=== PATIENT | female | born 1960 | race Two or more races ===

== ENCOUNTER 2021-08-13 19:55 | Observation (INO) | payer BC, OTHER ==
[2021-08-13] MEDS ORDERED: MECLIZINE HCL 25 MG TABLET (FP) PO ONE (20:16)
[2021-08-13] MEDS ORDERED: METOCLOPRAMIDE HCL 10 MG TABLET (FP) PO ONE ×2 (20:16→20:23)
[2021-08-13] MEDS ORDERED: SODIUM CHLORIDE 1,000 ML IV STA (20:16)
[2021-08-13] MEDS ORDERED: MECLIZINE HCL 25 MG TABLET (FP) ONE (20:23)
[2021-08-13 20:51] LABS: BASO % 0.7 % (0-2.0); EOS % 0.6 % (0-4.5); HEMATOCRIT 38.3 % (32.4-45.2); LYMPH % 19.3 % (8-40); MCH 28.6 pg (25.7-33.7); MCHC 33.9 g/dl (32.0-36.0); MEAN CELL VOLUME 84.4 fl (80-96); MEAN PLT VOLUME 8.6 fl (7.5-11.1); MONO % 6.3 % (3.8-10.2); NEUT % 73.1 % (42.8-82.8); PLATELET COUNT 238 10^3/uL (134-434); RBC 4.55 M/mm3 (3.60-5.2); RDW 13.6 % (11.6-15.6); WHITE BLOOD COUNT 8.6 K/mm3 (4.0-10.0)
[2021-08-13 21:00] LABS: ALBUMIN 3.7 g/dl (3.4-5.0); BLOOD UREA NITROGEN 13.1 mg/dL (7-18); CALCIUM 9.3 mg/dL (8.5-10.1); MAGNESIUM 2.4 mg/dL (1.8-2.4)
[2021-08-13 21:03] LABS: CREATININE 0.8 mg/dL (0.55-1.3)
[2021-08-13 21:05] LABS: BILIRUBIN,TOTAL 0.7 mg/dL (0.2-1); TOT PROT 6.9 g/dl (6.4-8.2)
[2021-08-14 02:16] LABS: EPI CELLS 5 /uL (0-25.1); HYALINE CASTS 0 /uL (0-3.1); URINE APPEARANCE CLEAR; URINE BACTERIA 21 /uL (0-1359); URINE BILIRUBIN NEGATIVE (NEGATIVE); URINE COLOR YELLOW; URINE GLUCOSE (UA) NEGATIVE (NEGATIVE); URINE KETONE NEGATIVE (NEGATIVE); URINE LEUK ESTERASE 1+ (NEGATIVE); URINE NITRITE NEGATIVE (NEGATIVE); URINE PROTEIN NEGATIVE (NEGATIVE); URINE RBC 3 /uL (0-23.9); URINE UROBILINOGEN 0.2 mg/dL (0.2-1.0); URINE WBC 27 /uL (0-25.8)
[2021-08-14 03:32] VITALS: BMI 35.1
[2021-08-14] MEDS ORDERED: ALBUTEROL SO4 HFA INHALER IH PRN (04:32)
[2021-08-14] MEDS: LEVOTHYROXINE NA 50 MCG TABLET (FP) PO SCH (06:10)
[2021-08-14 09:14] LABS: BASO % 0.7 % (0-2.0); EOS % 1.7 % (0-4.5); HEMATOCRIT 37.9 % (32.4-45.2); HEMOGLOBIN 12.4 GM/dL (10.7-15.3); LYMPH % 27.2 % (8-40); MCH 28.1 pg (25.7-33.7); MCHC 32.7 g/dl (32.0-36.0); MEAN PLT VOLUME 9.2 fl (7.5-11.1); NEUT % 61.4 % (42.8-82.8); PLATELET COUNT 225 10^3/uL (134-434); RDW 13.5 % (11.6-15.6); WHITE BLOOD COUNT 6.4 K/mm3 (4.0-10.0)
[2021-08-14 09:35] LABS: ALBUMIN 3.3 g/dl (3.4-5.0); BLOOD UREA NITROGEN 9.5 mg/dL (7-18)
[2021-08-14 09:36] LABS: CALCIUM 8.8 mg/dL (8.5-10.1)
[2021-08-14 09:38] LABS: CREATININE 0.6 mg/dL (0.55-1.3)
[2021-08-14 09:40] LABS: BILIRUBIN,TOTAL 0.9 mg/dL (0.2-1); TOT PROT 6.3 g/dl (6.4-8.2)
[2021-08-14] MEDS ORDERED: ATORVASTATIN CA 10 MG TABLET (FP) PO SCH (22:00)
[2021-08-15] MEDS: LEVOTHYROXINE NA 50 MCG TABLET (FP) PO SCH (06:16)
[2021-08-15] MEDS ORDERED: TOPIRAMATE 25 MG TABLET PO SCH (10:00)
[2021-08-15 10:34] VITALS: BP 119/63; PULSE 62; TEMP 98.1
[2021-08-15 13:08] LABS: SARS-CoV-2 NAA Not Detected (Not Detected)
== END 2021-08-15 14:47 | disposition home or self-care (01) ==
LOC: JER 19:55 → JERBED 20:58 → J4S 08-14 02:46
PROVIDERS: ADMIT Internal Medicine; ATTEND Family Medicine
PROC: 3E0337Z Introduction of Electrolytic and Water Balance Substance into Peripheral Vein, Percutaneous Approach (ICD-10-PCS; principal; 2021-08-13)
DX: R42 Dizziness and giddiness (principal); R11.2 Nausea with vomiting, unspecified; E03.9 Hypothyroidism, unspecified; R94.31 Abnormal electrocardiogram [ECG] [EKG]; E66.8 Other obesity; Z68.35 Body mass index [BMI] 35.0-35.9, adult; J45.909 Unspecified asthma, uncomplicated; R51.9 Headache, unspecified
CPT/HCPCS: 36415; 70450-TC; 71045-TC-FY; 80053; 80061; 81003; 83735; 84443; 84484; 85025; 87086; 93005; 93010; 99285-25; C9803; G0378; U0003; U0005

== ENCOUNTER 2021-12-23 04:01 | Day surgery (SDC) | payer BC, OTHER ==
[2021-12-19 14:12] VITALS: BMI 34.2
[2021-12-23] MEDS ORDERED: MIDAZOLAM HCL 2 MG/2 ML SINGLE DOSE VIAL ONE (08:56)
[2021-12-23] MEDS ORDERED: ONDANSETRON 4 MG/2 ML VIAL IVPUSH PRN (09:28)
[2021-12-23] MEDS ORDERED: ACETAMINOPHEN 325 MG TABLET (FP) PO PRN (09:28)
[2021-12-23] MEDS ORDERED: oxyCODONE HCL 5 MG TABLET PO PRN (09:28)
[2021-12-23] MEDS ORDERED: LACTATED RINGERS SOLUTION 1,000 ML IV SCH (09:30)
[2021-12-23 11:01] VITALS: BP 110/72; PULSE 58; TEMP 97.9
== END 2021-12-23 10:55 | disposition home or self-care (01) ==
LOC: JASU-SURG 04:01
PROVIDERS: ATTEND Urology
PROC: 0TF4XZZ Fragmentation in Left Kidney Pelvis, External Approach (ICD-10-PCS; principal; 2021-12-23 09:00)
DX: N20.0 Calculus of kidney (principal)

== ENCOUNTER 2022-02-20 22:53 | Observation (INO) | payer BC, OTHER ==
[2022-02-20 22:59] VITALS: BMI 34.7
[2022-02-20] MEDS ORDERED: METOCLOPRAMIDE HCL INJECTION 10 MG/2 ML VIAL IVPUSH ONE (23:27)
[2022-02-20] MEDS ORDERED: LACTATED RINGERS SOLUTION 1000 ML INFUS.BAG IV ONE (23:27)
[2022-02-20] MEDS ORDERED: ACETAMINOPHEN 1000 MG/100 ML BAG IVPB ONE (23:27)
[2022-02-20] MEDS ORDERED: ACETAMINOPHEN INJECTION 100 ML IVPB ONE (23:42)
[2022-02-20] MEDS ORDERED: METOCLOPRAMIDE HCL INJECTION 10 MG/2 ML VIAL ONE (23:42)
[2022-02-21] LABS: BASO % 0.9 % (0-2.0); EOS % 2.7 % (0-4.5); HEMATOCRIT 38.1 % (32.4-45.2); HEMOGLOBIN 13.2 GM/dL (10.7-15.3); LYMPH % 32.4 % (8-40); MCH 29.7 pg (25.7-33.7); MCHC 34.5 g/dl (32.0-36.0); MEAN CELL VOLUME 86.1 fl (80-96); MEAN PLT VOLUME 8.2 fl (7.5-11.1); MONO % 10.3 % (3.8-10.2); NEUT % 53.7 % (42.8-82.8); PLATELET COUNT 240 10^3/uL (134-434); RBC 4.43 M/mm3 (3.60-5.2); RDW 13.9 % (11.6-15.6); WHITE BLOOD COUNT 6.3 K/mm3 (4.0-10.0)
[2022-02-21 00:21] LABS: ALBUMIN 3.5 g/dl (3.4-5.0); CALCIUM 8.8 mg/dL (8.5-10.1)
[2022-02-21 00:24] LABS: CREATININE 1.1 mg/dL (0.55-1.3)
[2022-02-21 00:26] LABS: BILIRUBIN,TOTAL 0.4 mg/dL (0.2-1); TOT PROT 6.9 g/dl (6.4-8.2)
[2022-02-21 06:20] VITALS: BP 135/69; PULSE 52; RESP 19; TEMP 97.2
== END 2022-02-21 06:37 | disposition left against medical advice (07) ==
LOC: JER 22:53 → JERBED 02-21 00:58
PROVIDERS: ADMIT Internal Medicine; ATTEND Family Medicine
PROC: 3E033GC Introduction of Other Therapeutic Substance into Peripheral Vein, Percutaneous Approach (ICD-10-PCS; principal; 2022-02-21)
DX: R42 Dizziness and giddiness (principal); E03.9 Hypothyroidism, unspecified; J45.909 Unspecified asthma, uncomplicated; R51.9 Headache, unspecified; R00.1 Bradycardia, unspecified; Z88.2 Allergy status to sulfonamides; Z86.16 Personal history of COVID-19
CPT/HCPCS: 36415; 70450-TC; 71045-TC-FY; 80053; 84484; 85025; 93005; 93010; 96374; 96375; 99285-25; C9803-CS; G0378; U0003; U0005

== ENCOUNTER 2022-10-15 17:58 | Observation (INO) | payer BC, OTHER ==
[2022-10-15 20:01] LABS: HEMATOCRIT 41.8 % (32.4-45.2); HEMOGLOBIN 14.1 G/dL (10.7-15.3); MCH 29.2 pg (25.7-33.7); MCHC 33.6 g/dl (32.0-36.0); MEAN CELL VOLUME 86.9 fl (80-96); MEAN PLT VOLUME 8.5 fl (7.5-11.1); PLATELET COUNT 216.3 10^3/uL (134-434); RBC 4.81 10^6/uL (3.60-5.2); RDW 13.8 % (11.6-15.6); WHITE BLOOD COUNT 7.4 10^3/uL (4.0-10.8)
[2022-10-15 20:14] LABS: INR 1.04 (0.83-1.09)
[2022-10-15 20:21] LABS: ALBUMIN 4.1 g/dl (3.4-5.0); BILIRUBIN,TOTAL 0.7 mg/dl (0.2-1); CALCIUM 9.4 mg/dl (8.5-10); CREATININE 0.7 mg/dl (0.55-1.3); POTASSIUM 3.7 mmol/L (3.5-5.1)
[2022-10-16] MEDS ORDERED: ACETAMINOPHEN 1000 MG/100 ML BAG IVPB PRN (01:32)
[2022-10-16 02:14] VITALS: BMI 35.8
[2022-10-16] MEDS ORDERED: ALBUTEROL SO4 HFA INHALER IH PRN (02:54)
[2022-10-16] MEDS ORDERED: PATIENT'S OWN MEDICATION (NON-FORMULARY) (Ubrogepant [Ubrelvy] 100 MG Tablet) PO SCH (10:00)
[2022-10-16] MEDS ORDERED: ROSUVASTATIN CA 10 MG TABLET PO SCH (22:00)
[2022-10-17] MEDS ORDERED: ACETAMINOPHEN 325 MG TABLET (FP) PO PRN (01:27)
[2022-10-17 08:54] LABS: CALCIUM 8.6 mg/dl (8.5-10); CREATININE 0.7 mg/dl (0.55-1.3); POTASSIUM 4.1 mmol/L (3.5-5.1)
[2022-10-17 09:01] LABS: HEMATOCRIT 39.4 % (32.4-45.2); MEAN CELL VOLUME 87.9 fl (80-96); MEAN PLT VOLUME 9.6 fl (7.5-11.1); RBC 4.48 10^6/uL (3.60-5.2); RDW 14.1 % (11.6-15.6); WHITE BLOOD COUNT 6.2 10^3/uL (4.0-10.8)
[2022-10-17 09:06] VITALS: RESP 18; TEMP 98.6
[2022-10-17 14:38] VITALS: BP 115/65; PULSE 67
== END 2022-10-17 16:55 | disposition home or self-care (01) ==
LOC: FER 17:58 → FM/S 23:45 → UNDOADMOB 23:49 → INTOOBSV 23:49
PROVIDERS: ADMIT Internal Medicine; ATTEND Family Medicine
DX: I62.9 Nontraumatic intracranial hemorrhage, unspecified (principal); R51.9 Headache, unspecified; Z86.16 Personal history of COVID-19; E03.9 Hypothyroidism, unspecified; J45.909 Unspecified asthma, uncomplicated; W19.XXXA Unspecified fall, initial encounter; Y93.9 Activity, unspecified; Y92.9 Unspecified place or not applicable
CPT/HCPCS: 0241U-QW; 36415; 70450-TC; 71045-TC-FY; 80048; 80053; 81003; 81015; 82550; 84484; 85027; 85610; 85730; 93005; 97116-GP; 97161-GP; 99285-25; G0378

== ENCOUNTER 2022-10-23 01:59 | Emergency (ER) | payer BC, OTHER ==
[2022-10-23 02:09] VITALS: BMI 27.8
[2022-10-23] MEDS ORDERED: ONDANSETRON 4 MG/2 ML VIAL IVPUSH ONE (02:17)
[2022-10-23] MEDS ORDERED: FAMOTIDINE 20 MG/50 ML IVPB 20 MG/50 ML MG IVPB ONE ×2 (02:17→02:44)
[2022-10-23] MEDS ORDERED: ACETAMINOPHEN 1000 MG/100 ML BAG IVPB ONE (02:18)
[2022-10-23] MEDS ORDERED: ONDANSETRON 4 MG/2 ML VIAL ONE (02:43)
[2022-10-23] MEDS ORDERED: ACETAMINOPHEN INJECTION 100 ML IVPB ONE (02:43)
[2022-10-23 02:51] LABS: BASO % 0.7 % (0-2.0); EOS % 1.7 % (0-4.5); HEMOGLOBIN 12.6 GM/dL (10.7-15.3); LYMPH % 20.1 % (8-40); MCH 29.2 pg (25.7-33.7); MCHC 34.9 g/dl (32.0-36.0); MEAN CELL VOLUME 83.6 fl (80-96); MEAN PLT VOLUME 8.7 fl (7.5-11.1); NEUT % 71.5 % (42.8-82.8); PLATELET COUNT 215 10^3/uL (134-434); RBC 4.31 M/mm3 (3.60-5.2); RDW 13.2 % (11.6-15.6); WHITE BLOOD COUNT 6.8 K/mm3 (4.0-10.0)
[2022-10-23 03:07] LABS: INR 1.03 (0.83-1.09)
[2022-10-23 03:09] LABS: ACTIVATED PTT 30.2 SECONDS (25.2-36.5)
[2022-10-23 03:19] LABS: POTASSIUM 3.7 mmol/L (3.5-5.1)
[2022-10-23 03:21] LABS: CALCIUM 8.8 mg/dL (8.5-10.1)
[2022-10-23 03:22] LABS: ALBUMIN 3.5 g/dl (3.4-5.0); BLOOD UREA NITROGEN 21.3 mg/dL (7-18)
[2022-10-23 03:25] LABS: CREATININE 0.8 mg/dL (0.55-1.3)
[2022-10-23 03:26] LABS: BILIRUBIN,TOTAL 0.6 mg/dL (0.2-1)
[2022-10-23 03:27] LABS: TOT PROT 6.7 g/dl (6.4-8.2)
[2022-10-23] MEDS ORDERED: METOCLOPRAMIDE HCL INJECTION 10 MG/2 ML VIAL IVPB ONE (03:46)
[2022-10-23] MEDS ORDERED: PANTOPRAZOLE SODIUM 40 MG VIAL IVPUSH ONE (03:46)
[2022-10-23] MEDS ORDERED: METOCLOPRAMIDE HCL INJECTION 10 MG/2 ML VIAL ONE (03:56)
[2022-10-23] MEDS ORDERED: PANTOPRAZOLE SODIUM 40 MG/100 ML BAG IVPB ONE (03:57)
[2022-10-23 07:00] LABS: PH,URINE 6.5 (5.0-8.0); URINE APPEARANCE CLEAR; URINE BILIRUBIN NEGATIVE (NEGATIVE); URINE COLOR YELLOW; URINE GLUCOSE (UA) NEGATIVE (NEGATIVE); URINE KETONE NEGATIVE (NEGATIVE); URINE LEUK ESTERASE NEGATIVE (NEGATIVE); URINE NITRITE NEGATIVE (NEGATIVE); URINE PROTEIN NEGATIVE (NEGATIVE); URINE UROBILINOGEN 0.2 mg/dL (0.2-1.0)
[2022-10-23 07:30] VITALS: BP 119/63; PULSE 63; RESP 18
== END 2022-10-23 07:33 | disposition home or self-care (01) ==
LOC: JER 01:59
PROC: 3E033GC Introduction of Other Therapeutic Substance into Peripheral Vein, Percutaneous Approach (ICD-10-PCS; principal; 2022-10-23)
PROC: 3E033GC Introduction of Other Therapeutic Substance into Peripheral Vein, Percutaneous Approach (ICD-10-PCS; 2022-10-23)
PROC: 3E033GC Introduction of Other Therapeutic Substance into Peripheral Vein, Percutaneous Approach (ICD-10-PCS; 2022-10-23)
PROC: 3E033GC Introduction of Other Therapeutic Substance into Peripheral Vein, Percutaneous Approach (ICD-10-PCS; 2022-10-23)
DX: R11.2 Nausea with vomiting, unspecified (principal); R10.9 Unspecified abdominal pain; R51.9 Headache, unspecified; Z20.822 Contact with and (suspected) exposure to COVID-19
CPT/HCPCS: 0241U-QW; 36415; 70450-TC; 80053; 81003; 83690; 84484; 85025; 85610; 85730; 87086; 93005; 93010; 99285-25

== ENCOUNTER 2023-05-24 04:09 | Day surgery (SDC) | payer BC, OTHER ==
[2023-05-20 15:34] VITALS: BMI 34.7
[2023-05-24 08:13] VITALS: RESP 18
[2023-05-24] MEDS ORDERED: FENTANYL CITRATE/PF 50 MCG/ML VIAL ONE (10:44)
[2023-05-24] MEDS ORDERED: MIDAZOLAM HCL 2 MG/2 ML SINGLE DOSE VIAL ONE (10:44)
[2023-05-24] MEDS ORDERED: ONDANSETRON 4 MG/2 ML VIAL ONE (10:45)
[2023-05-24 12:10] VITALS: BP 108/65; PULSE 57; TEMP 97.5
== END 2023-05-24 12:15 | disposition home or self-care (01) ==
LOC: JASU-SURG 04:09
PROVIDERS: ATTEND Urology
PROC: 0TF4XZZ Fragmentation in Left Kidney Pelvis, External Approach (ICD-10-PCS; principal; 2023-05-24 10:30)
DX: N20.0 Calculus of kidney (principal)

== ENCOUNTER 2023-09-17 08:47 | Emergency (ER) | payer OTHER, BC ==
[2023-09-17 08:54] VITALS: BMI 33.8
[2023-09-17 11:28] VITALS: BP 126/86; PULSE 64; RESP 17; TEMP 98.1
== END 2023-09-17 11:34 | disposition home or self-care (01) ==
LOC: JER 08:47
DX: R13.10 Dysphagia, unspecified (principal)
CPT/HCPCS: 70360-TC-FY; 70490-TC; 99284-25

== ENCOUNTER 2024-06-12 08:14 | Emergency (ER) | payer OTHER, BC ==
[2024-06-12 08:32] VITALS: BP 115/68; PULSE 73; RESP 18; TEMP 98.4; BMI 34.7
[2024-06-12] MEDS ORDERED: guaiFENesin 600 MG TABLET.ER (FP) PO ONE (08:34)
[2024-06-12] MEDS: guaiFENesin 600 MG TABLET.ER (FP) PO ONE (08:35)
== END 2024-06-12 09:49 | disposition home or self-care (01) ==
LOC: FER 08:14
DX: R05.9 Cough, unspecified (principal); B34.9 Viral infection, unspecified; Z20.822 Contact with and (suspected) exposure to COVID-19
CPT/HCPCS: 0241U-QW; 71046-TC-FY; 99284-25